=== PATIENT | male | born 1965 | race Caucasian/White ===

== ENCOUNTER 2017-07-15 16:13 | Inpatient (IN) | payer SELFPAY ==
[~2017-07-15] VITALS: Ht 177.8 cm; Wt 65.0 kg
[2017-07-15 16:15] VITALS: BP 139/83; PULSE 103; RESP 14; TEMP 98.8; O2SAT 95
[2017-07-15 17:46] LABS: AUTOMATED NEUTROPHIL # 7.6 TH/MM3 (1.8-7.7); BASOPHIL % 0.3 % (0.0-2.0); EOSINOPHIL # 0.1 TH/MM3 (0-0.4); EOSINOPHIL % 0.9 % (0.0-4.0); HEMOGLOBIN 14.2 GM/DL (13.0-17.0); LYMPHOCYTE # 2.3 TH/MM3 (1.0-4.8); MEAN CORPUSCULAR HEMOGLOBIN 33.2 PG (27.0-34.0); MEAN CORPUSCULAR HGB CONC 34.6 % (32.0-36.0); MEAN PLATELET VOLUME 7.6 FL (7.0-11.0); MONO % 12.5 % (0.0-8.0); MONOCYTE # 1.4 TH/MM3 (0-0.9); NEUT % 66.3 % (16.0-70.0); PLATELET COUNT 181 TH/MM3 (150-450); RED BLOOD COUNT 4.27 MIL/MM3 (4.50-5.90); RED CELL DISTRIBUTION WIDTH 14.1 % (11.6-17.2); WHITE BLOOD COUNT 11.4 TH/MM3 (4.0-11.0)
[2017-07-15 18:00] LABS: BICARBONATE 22.1 MEQ/L (21.0-32.0); CALCIUM 8.5 MG/DL (8.5-10.1); CREATININE 0.61 MG/DL (0.60-1.30)
[2017-07-15] MEDS ORDERED: MORPHINE SULFATE 4 MG/ML INJ IV PUSH ONE (18:00)
[2017-07-15] MEDS ORDERED: AMPICILLIN-SULBACTAM INJ 3 GM in SODIUM CHLORIDE 0.9% INJ 100 ML IV ONE (18:00)
[2017-07-15] MEDS ORDERED: NICOTINE 14 MG/24 HR PATCH T-DERMAL ONE (18:00)
[2017-07-15] MEDS ORDERED: IBUP1TAB7 PO (18:06)
--- NOTE | 2017-07-15 18:26 | RADRPT ---
EXAM DATE/TIME: 07/15/2017 18:09 [place] COMPARISON: No previous studies available for comparison. INDICATIONS : Right hand pain and swelling, cat bite. MEDICAL HISTORY : None. SURGICAL HISTORY : None. ENCOUNTER: Initial ACUITY: 4 - 6 days PAIN SCORE: 10/10 LOCATION: Right hand, 3rd digit. FINDINGS: Soft tissue swelling overlying the dorsum of the distal hand and middle digit. Osseous structures felicia ear intact without evidence for bony erosion or fracture. Joint spaces are maintained. CONCLUSION: 1. Soft tissue swelling overlying the dorsum of the distal right hand and middle digit. 2. No radiopaque foreign bodies or fracture. Jak Valentin MD on July 15, 2017 at 18:24 Board Certified Radiologist. This report was verified electronically.
[2017-07-15] MEDS ORDERED: RABIES IMMUNE GLOBULIN INJ 1,500 UNITS/10 ML VIAL IM ONE (18:30)
[2017-07-15] MEDS ORDERED: RABIES VACCINE HUMAN DIPL CELL 2.5 UNITS/ML SYRINGE IM ONE (18:30)
[2017-07-15] MEDS ORDERED: NALOXONE HCL 0.4 MG/ML AMP IV PUSH PRN (18:45)
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
[2017-07-15 20:00] VITALS: BP 126/89; PULSE 97; RESP 18; TEMP 97; O2SAT 97
[2017-07-15] MEDS ORDERED: LORazepam 2 MG/ML VIAL IV PUSH PRN ×4 (21:00)
[2017-07-15] MEDS ORDERED: LORazepam 1 MG TAB PO PRN (21:00)
[2017-07-15] MEDS ORDERED: LORazepam 2 MG TAB PO PRN (21:00)
[2017-07-15] MEDS ORDERED: FLUMAZENIL 0.5 MG/5 ML VIAL IV PUSH PRN (21:00)
--- NOTE | 2017-07-15 21:00 | HHI.HP ---
[facility] Admission Diagnosis right middle finger infected cat bite, tendosynovitis? Diagnoses: Travel History International Travel<30 Days: No Contact w/Intl Traveler <30 Da: No Traveled to Known Affected Are: No History of Present Illness 52-year-old male with past medical history of alcohol and tobacco abuse (has not seen a PCP in 40 years) presents to the emergency department for evaluation of a cat bite. The patient reports that 4 days ago he was petting a stray cat that he had recently adopted when the cat bit the third digit of his right hand and scratched his face. 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 The patient' s finger began to swell and ulcerate and he is now having difficulty with range of motion. He reports significant pain to the finger. The scratches on his face are healing without signs of erythema or induration. The patient denies any fever/chills. No chest pain or shortness of breath. No nausea/vomiting/ diarrhea. Review of Systems Except as stated in HPI: all other systems reviewed are Neg Past Family Social History Past Medical History None that the patient is aware of Past Surgical History None Reported Medications Reported Meds & Active Scripts Active Reported Ibuprofen 800 Mg Tab 800 Mg PO Q6HR PRN Allergies: Coded Allergies: No Known Allergies (Verified Allergy, Mild, 10/29/07) Family History Father with diabetes mellitus Social History Smokes approximately one pack per day. Drinks 816 ounce beers daily. Denies marijuana or illicit drugs. Physical Exam Vital Signs Vital Signs Date Time Temp Pulse Resp B/P (MAP) Pulse Ox O2 Delivery O2 Flow Rate FiO2 07/15/17 20:21 07/15/17 19:46 18 07/15/17 16:15 98.8 103 14 139/83 (101) 95 Physical Exam GENERAL: male sitting up in bed SKIN: No rashes, ecchymoses or lesions. Cool and dry. 2 small puncture wounds on the left latter-day and left cheek, healing well without surrounding erythema or edema. HEAD: Atraumatic. Normocephalic. No temporal or scalp tenderness. EYES: Pupils equal round and reactive. Extraocular motions intact. No scleral icterus. No injection or drainage. ENT: Nose without bleeding, purulent drainage or septal hematoma. Throat without erythema, tonsillar hypertrophy or exudate. Uvula midline. Airway patent. NECK: Trachea midline. No JVD or lymphadenopathy. Supple, nontender, no meningeal signs. CARDIOVASCULAR: Regular rate and rhythm without murmurs, gallops, or rubs. RESPIRATORY: Clear to auscultation. Breath sounds equal bilaterally. No wheezes , rales, or rhonchi. GASTROINTESTINAL: Abdomen soft, non-tender, nondistended. No hepato-splenomegaly , or palpable masses. No guarding. MUSCULOSKELETAL: Extremities without clubbing, cyanosis, or edema. Third digit of right hand erythematous and swollen. Ulceration over PIP joint. Capillary refill less than 2 seconds. Unable to flex the DIP joint. Sensation intact NEUROLOGICAL: Awake and alert. Cranial nerves II through XII intact. Motor and sensory grossly within normal limits. Normal speech. Laboratory Laboratory Tests Test 07/15/17 17:00 White Blood Count 11.4 Red Blood Count 4.27 Hemoglobin 14.2 Hematocrit 41.0 Mean Corpuscular Volume 96.0 Mean Corpuscular Hemoglobin 33.2 Mean Corpuscular Hemoglobin Concent 34.6 Red Cell Distribution Width 14.1 Platelet Count 181 Mean Platelet Volume 7.6 Neutrophils (%) (Auto) 66.3 Lymphocytes (%) (Auto) 20.0 Monocytes (%) (Auto) 12.5 Eosinophils (%) (Auto) 0.9 Basophils (%) (Auto) 0.3 Neutrophils # (Auto) 7.6 Lymphocytes # (Auto) 2.3 Monocytes # (Auto) 1.4 Eosinophils # (Auto) 0.1 Basophils # (Auto) 0.0 CBC Comment DIFF FINAL Differential Comment Blood Urea Nitrogen 4 Creatinine 0.61 Random Glucose 79 Calcium Level 8.5 Sodium Level 134 Potassium Level 3.8 Chloride Level 103 Carbon Dioxide Level 22.1 Anion Gap 9 Estimat Glomerular Filtration Rate 140 Date/Time Source Procedure Growth Status 07/15/17 18:30 Blood Peripheral Aerobic Blood Culture Pending Received 07/15/17 18:30 Blood Peripheral Anaerobic Blood Culture Pending Received Result Diagram: 07/15/17 1700 07/15/17 1700 Caprini VTE Risk Assessment Caprini VTE Risk Assessment: No/Low Risk (score <= 1) Caprini Risk Assessment Model Point Value = 1 Point Value = 2 Point Value = 3 Point Value = 5 Age 41-60 Minor surgery BMI > 25 kg/m2 Swollen legs Varicose veins or History of unexplained or recurrent spontaneous Oral contraceptives or hormone replacement Sepsis (< 1 month) Serious lung disease, including pneumonia (< 1 month) Abnormal pulmonary function Acute myocardial infarction Congestive heart failure (< 1 month) History of inflammatory bowel disease Medical patient at bed rest Age 61-74 Arthroscopic surgery Major open surgery (> 45 min) Laparoscopic surgery (> 45 min) Malignancy Confined to bed (> 72 hours) Immobilizing plaster cast Central venous access Age >= 75 History of VTE Family history of VTE Factor V Leiden Prothrombin [id number] Lupus anticoagulant Anticardiolipin antibodies Elevated serum homocysteine Heparin-induced thrombocytopenia Other congenital or acquired thrombophilia Stroke (< 1 month) Elective arthroplasty Hip, pelvis, or leg fracture Acute spinal cord injury (< 1 month) Prophylaxis Regimen Total Risk Factor Score Risk Level Prophylaxis Regimen 0-1 Low Early ambulation 2 Moderate Order ONE of the following: *Sequential Compression Device (SCD) *Heparin 5000 units SQ BID 3-4 Higher Order ONE of the following medications: *Heparin 5000 units SQ TID *Enoxaparin/Lovenox 40 mg SQ daily (WT < 150 kg, CrCl > 30 mL/min) *Enoxaparin/Lovenox 30 mg SQ daily (WT < 150 kg, CrCl > 10-29 mL/min) *Enoxaparin/Lovenox 30 mg SQ BID (WT < 150 kg, CrCl > 30 mL/min) AND/OR *Sequential Compression Device (SCD) 5 or more Highest Order ONE of the following medications: *Heparin 5000 units SQ TID (Preferred with Epidurals) *Enoxaparin/Lovenox 40 mg SQ daily (WT < 150 kg, CrCl > 30 mL/min) *Enoxaparin/Lovenox 30 mg SQ daily (WT < 150 kg, CrCl > 10-29 mL/min) *Enoxaparin/Lovenox 30 mg SQ BID (WT < 150 kg, CrCl > 30 mL/min) AND *Sequential Compression Device (SCD) Assessment and Plan Assessment and Plan Assessment/plan: 1. Cat bite/hand cellulitis Patient bitten by a stray cat with unknown history Per Department of Health, rabies cannot be excluded Rabies immunoglobulin given in the emergency department today Initial rabies vaccine given in the emergency department today Per health department, patient will need vaccinations on day 3, 7 and 14he will be able to receive these vaccinations at the health department except for day 3 which is a Wednesday. Patient is being taken to the OR for washout of third digit right hand, hand surgery consulted, appreciate assistance Unasyn 2. Alcohol abuse Folate/Ben/multivitamins [facility] protocol 3. Noncompliance The patient does not wish to be admitted to the hospital and has tried on multiple occasions to leave AGAINST MEDICAL ADVICE. Risks and benefits including not completing the rabies vaccination series, not completing IV antibiotics and not having his hand injury addressed in the operating room may result in serious infection, hand amputation and ultimately were discussed with the patient. The patient expresses understanding and agrees to stay at this time. It is unclear how long the patient will remain in the hospital. FEN NPO Electrolytes: monitor and replete prn Ambulation Physician Certification 2 Midnight Certification Type: Admission for Inpatient Services Order for Inpatient Services The services are ordered in accordance with Medicare regulations or non- Medicare payer requirements, as applicable. In the case of services not specified as inpatient-only, they are appropriately provided as inpatient services in accordance with the 2-midnight benchmark. Estimated LOS (days): 2 2 days is the estimated time the patient will need to remain in the hospital, assuming treatment plan goals are met and no additional complications. Post-Hospital Plan: Not yet determined Rachana Dunham MD Jul 15, 2017 21:00
[2017-07-15] MEDS: SODIUM CHLORIDE 0.9% FLUSH 10 ML FLUSH IV FLUSH SCH (22:43)
[2017-07-15] MEDS ORDERED: LIDOCAINE HCL 2% 50 ML VIAL ONE (23:29)
[2017-07-15] MEDS ORDERED: MUPIROCIN 2% OINT 22 GM TUBE ONE (23:30)
[2017-07-15] MEDS ORDERED: NEOMYCIN/POLYMYXIN 1 ML G.U. IRRIGANT ONE ×2 (23:35→23:36)
[2017-07-15] MEDS ORDERED: BUPIVACAINE HCL PF 0.5% 30 ML VIAL ONE (23:43)
[2017-07-15] MEDS ORDERED: MIDAZOLAM HCL 2 MG/2 ML VIAL ONE (23:49)
[2017-07-16] VITALS (10 sets, daily range): BP systolic 76–139; BP diastolic 66–88; PULSE 65–92; RESP 17–20; TEMP 97.5–99.1; O2SAT 94–99
--- NOTE | 2017-07-16 01:22 | PD.OP ---
Operative Report Preoperative Diagnosis: (1) Abscess of right middle finger Postoperative Diagnosis: (1) flexor tenosynovitis right middle finger (2) Abscess of right middle finger Procedure: incision and drainage abscess right middle finger dorsum incision and drainage flexor tendon sheath right middle finger Anesthesia: general Surgeon: Cade Craven Counselor Manager(s): gaurav Operation and Findings: abscess over the dorsal aspect of the right middle finger subcutaneous and underneath extensor mechanism extensive inflammatory and necrotic tissue infection of the flexor tendon sheath right middle finger Cade Craven MD Jul 16, 2017 01:22
[2017-07-16] MEDS ORDERED: *morphine SULFATE 4 MG/ML PERIprocedure ONLY ONE (01:44)
[2017-07-16] MEDS ORDERED: DO NOT ADM ANY ANTICOAGULANT DRUGS PRN (01:45)
[2017-07-16] MEDS: AMPICILLIN-SULBACTAM INJ 3 GM in SODIUM CHLORIDE 0.9% INJ 100 ML IV SCH ×4 (02:17→18:16)
[2017-07-16] MEDS: MORPHINE SULFATE 2 MG/ML INJ IV PUSH PRN ×2 (03:01→08:17)
[2017-07-16] MEDS: SODIUM CHLORIDE 0.9% FLUSH 10 ML FLUSH IV FLUSH PRN (03:01)
[2017-07-16 07:59] LABS: AUTOMATED NEUTROPHIL # 4.8 TH/MM3 (1.8-7.7); BASOPHIL % 0.2 % (0.0-2.0); EOSINOPHIL % 0.5 % (0.0-4.0); HEMATOCRIT 38.5 % (39.0-51.0); HEMOGLOBIN 13.4 GM/DL (13.0-17.0); LYMPH % 12.8 % (9.0-44.0); LYMPHOCYTE # 0.9 TH/MM3 (1.0-4.8); MEAN CELL VOLUME 95.4 FL (80.0-100.0); MEAN CORPUSCULAR HEMOGLOBIN 33.2 PG (27.0-34.0); MEAN CORPUSCULAR HGB CONC 34.8 % (32.0-36.0); MEAN PLATELET VOLUME 7.3 FL (7.0-11.0); MONO % 15.5 % (0.0-8.0); PLATELET COUNT 166 TH/MM3 (150-450); RED BLOOD COUNT 4.04 MIL/MM3 (4.50-5.90); RED CELL DISTRIBUTION WIDTH 13.8 % (11.6-17.2); WHITE BLOOD COUNT 6.8 TH/MM3 (4.0-11.0)
[2017-07-16] MEDS: MULTIVITAMINS/MINERALS THERAPEUTIC TAB PO SCH (08:18)
[2017-07-16] MEDS: FOLIC ACID 1 MG TAB PO SCH (08:18)
[2017-07-16] MEDS: THIAMINE HCL 100 MG TAB PO SCH (08:18)
[2017-07-16] MEDS: SODIUM CHLORIDE 0.9% FLUSH 10 ML FLUSH IV FLUSH SCH ×2 (08:19→21:00)
[2017-07-16 08:24] LABS: BICARBONATE 23.7 MEQ/L (21.0-32.0); CREATININE 0.59 MG/DL (0.60-1.30)
[2017-07-16] MEDS ORDERED: ONDANSETRON HCL 4 MG/2 ML VIAL ONE (11:26)
[2017-07-16] MEDS ORDERED: PROPOFOL 200 MG/20 ML AMP IV ONE (12:00)
[2017-07-16] MEDS ORDERED: ceFAZolin INJ 1,000 MG VIAL IV ONE (12:00)
[2017-07-16] MEDS ORDERED: NS + KCL 20 MEQ INJ 1,000 ML IV PRN (12:00)
[2017-07-16] MEDS ORDERED: LIDOCAINE HCL 1% PF 5 ML SYRINGE OTHER ONE (12:00)
[2017-07-16] MEDS ORDERED: PHENYLEPH/NS 1000 MCG/10 ML SYR IV ONE (12:00)
--- NOTE | 2017-07-16 12:31 | MB ---
cc: DAVE ABBOTT MD DATE OF CONSULTATION 07/16/2017 REASON FOR CONSULTATION Right middle finger infection. HISTORY OF PRESENT ILLNESS The patient is a 52-year-old male who presented with complaints of pain and swelling over the right middle finger for the past 4-5 days. The patient states he was bitten by a cat over the dorsal aspect of the right middle finger. The patient did not seek immediate medical attention. He is presenting today with worsening pain and swelling over the right middle finger and right palm region. The patient also complains of pain along the volar aspect of the right middle finger. He denies any tingling or numbness. He complains of mild drainage. Denies any fever or chills. The patient has a history of alcohol and tobacco abuse. PAST MEDICAL/SURGICAL HISTORY None significant. PHYSICAL EXAMINATION GENERAL: The patient is alert and oriented x3. RIGHT HAND: Examination of the right middle finger reveals diffuse swelling of the right middle finger and the dorsal aspect of the hand. There is also swelling along the palmar aspect of the hand corresponding to the middle finger which extends along the volar aspect of the proximal phalanx region. Exquisite tenderness is noted along the flexor aspect of the right middle finger. Tenderness is also noted over the dorsal aspect of the finger. The fingers is in a flexed position. Range of motion is limited and painful. Tenderness noted over the MP joint region of the middle finger. He has intact sensation distally. He has intact distal circulation. LABORATORY His lab work was reviewed. He has a white count of 11.4. IMAGING X-rays of the right hand show evidence of soft tissue swelling over the right middle finger. No evidence of radiopaque foreign body noted. ASSESSMENT A 52-year-old male with abscess over the dorsal aspect of the right middle finger with flexor tenosynovitis of the right middle finger. PLAN Will keep the patient n.p.o., take him emergently for incision and drainage of right middle finger abscess and drainage of flexor tendon sheath. The patient has been explained the risks and benefits of the procedure and he has been consented for the same. Dave Abbott MD SE/BT /1:28 AM 12:15 PM
--- NOTE | 2017-07-16 13:50 | HHI.PR ---
Subjective Remarks F/u infected cat bite. Complaining of finger pain. N/V this am per vomits when under stress. No abd pain dw RN Objective Vitals Vital Signs Date Time Temp Pulse Resp B/P (MAP) Pulse Ox O2 Delivery O2 Flow Rate FiO2 07/16/17 12:00 97.8 92 20 76/ 94 07/16/17 10:23 95 07/16/17 08:38 68 07/16/17 07:47 98.6 89 20 139/88 (105) 95 07/16/17 04:00 97.5 73 18 109/66 (80) 96 07/16/17 01:45 93 18 114/79 (91) 93 Nasal Cannula 2 07/16/17 01:30 99 15 109/77 (88) 95 Nasal Cannula 2 07/16/17 01:25 98.1 95 15 110/66 (81) 93 Nasal Cannula 2 07/15/17 20:21 07/15/17 20:00 97.0 97 18 126/89 (101) 97 07/15/17 19:46 18 07/15/17 16:15 98.8 103 14 139/83 (101) 95 I/O 07/15/17 07/15/17 07/15/17 07/16/17 07/16/17 07/16/17 07:00 15:00 23:00 07:00 15:00 23:00 Intake Total 200 ml 100 ml Output Total 20 ml Balance 180 ml 100 ml Intake IV Total 100 ml Other 200 ml Output Estimated Blood Loss 20 ml # Voids 3 Result Diagram: 07/16/17 0658 07/16/17 0658 Imaging Last Impressions Hand X-Ray 07/15/17 2462 Signed Impressions: Service Date/Time: June 18:09 - CONCLUSION: 1. Soft tissue swelling overlying the dorsum of the distal right hand and middle digit. 2. No radiopaque foreign bodies or fracture. Jak Valentin MD Objective Remarks GENERAL: male sitting up in bed SKIN: No rashes, ecchymoses or lesions. Cool and dry. Dry dressing right hand CARDIOVASCULAR: Regular rate and rhythm without murmurs, gallops, or rubs. RESPIRATORY: Clear to auscultation. Breath sounds equal bilaterally. No wheezes , rales, or rhonchi. GASTROINTESTINAL: Abdomen soft, non-tender, nondistended. No guarding. MUSCULOSKELETAL: Extremities without clubbing, cyanosis, or edema. NEUROLOGICAL: Awake and alert. Cranial nerves II through XII intact. Motor and sensory grossly within normal limits. Normal speech. Procedures incision and drainage abscess right middle finger dorsum incision and drainage flexor tendon sheath right middle finger A/P Problem List: (1) Abscess of right middle finger ICD Code: L02.511 - Cutaneous abscess of right hand (2) flexor tenosynovitis right middle finger Assessment and Plan 1. Cat bite/finger abscess Patient bitten by a stray cat with unknown history Per Department of Health, rabies cannot be excluded Rabies immunoglobulin given in the emergency department 07/15 Initial rabies vaccine given in the emergency department 07/15 Per health department, patient will need vaccinations on day 3, 7 and 14 he will be able to receive these vaccinations at the health department except for day 3 which is a Wednesday when he can get it in ED. Patient doing well status post hand surgery. Continue pain management with Lortab and IV morphine Continue Unasyn follow-up cultures negative to date 2. Alcohol abuse. Counselled Folate/Ben/multivitamins [facility] protocol 3. Noncompliance Low risk for DVT . Early ambulation Discharge Planning Dc per hand surgery Iam Toribio MD Jul 16, 2017 13:50
[2017-07-16] MEDS ORDERED: HYDR-3516 PO (14:00)
[2017-07-16] MEDS ORDERED: THIA100 PO (14:00)
[2017-07-16] MEDS ORDERED: AUGM875T3 PO (14:02)
--- NOTE | 2017-07-16 14:03 | HHI.DCPOC ---
Discharge Care Plan Diagnosis: (1) Cat bite of finger (2) Abscess of right middle finger (3) flexor tenosynovitis right middle finger Your Health Problems Are: Difficulty with ADL Exercise Tolerance Goals to Promote Your Health * To prevent worsening of your condition and complications * To maintain your health at the optimal level Directions to Meet Your Goals Take your medications as prescribed Follow your dietary instruction Follow activity as directed Keep your appointments as scheduled Take your immunizations and boosters as scheduled If your symptoms worsen call your PCP, if no PCP go to Urgent Care Center or Emergency Room Smoking is Dangerous to Your Health. Avoid second hand smoke Call the 24-hour hour crisis hotline for domestic abuse at Iam Toribio MD Jul 16, 2017 14:03
[2017-07-16] MEDS: ACETAMINOPHEN/HYDROcodone 325 MG/5 MG TAB PO PRN ×2 (14:49→20:00)
--- NOTE | 2017-07-16 16:17 | HHI.PR ---
Subjective Remarks complains of pain denies any numbness no fever Objective Vital Signs Date Time Temp Pulse Resp B/P (MAP) Pulse Ox O2 Delivery O2 Flow Rate FiO2 07/16/17 15:42 97.7 77 20 133/77 (95) 99 07/16/17 12:30 74 07/16/17 12:00 97.8 92 20 76/ 94 07/16/17 10:23 95 07/16/17 08:38 68 07/16/17 07:47 98.6 89 20 139/88 (105) 95 07/16/17 04:00 97.5 73 18 109/66 (80) 96 07/16/17 01:45 93 18 114/79 (91) 93 Nasal Cannula 2 07/16/17 01:30 99 15 109/77 (88) 95 Nasal Cannula 2 07/16/17 01:25 98.1 95 15 110/66 (81) 93 Nasal Cannula 2 07/15/17 20:21 07/15/17 20:00 97.0 97 18 126/89 (101) 97 07/15/17 19:46 18 07/15/17 16:15 98.8 103 14 139/83 (101) 95 I/O 07/15/17 07/15/17 07/15/17 07/16/17 07/16/17 07/16/17 07:00 15:00 23:00 07:00 15:00 23:00 Intake Total 200 ml 100 ml 960 ml Output Total 20 ml Balance 180 ml 100 ml 960 ml Intake Oral 960 ml IV Total 100 ml Other 200 ml Output Estimated Blood Loss 20 ml # Voids 3 3 examination of right hand: swelling and erythema noted over the dorsal aspect of the middle finger extending upto middle phalanx region range of motion of the middle finger is painful and limited packing in place over the palm and dorsal aspect of the finger intact sensation intact circulation cultures negative to date white count: normalized Result Diagram: 07/16/17 0658 07/16/17 0658 Assessment and Plan Assessment and Plan 52 year old male s/p incision and drainage abscess, drainage flexor tendon sheath right middle finger POD 1 Plan: packing pulled out partially dry dressing applied continue with IV antibiotics strict limb elevation and range of motion exercises hand surgery will follow Cade Craven MD Jul 16, 2017 16:17
[2017-07-17] VITALS (7 sets, daily range): BP systolic 114–148; BP diastolic 63–93; PULSE 60–78; RESP 17–20; TEMP 97.6–98.5; O2SAT 93–97
[2017-07-17] MEDS: AMPICILLIN-SULBACTAM INJ 3 GM in SODIUM CHLORIDE 0.9% INJ 100 ML IV SCH ×4 (02:08→17:43)
[2017-07-17] MEDS: SODIUM CHLORIDE 0.9% FLUSH 10 ML FLUSH IV FLUSH PRN (02:08)
[2017-07-17] MEDS: ACETAMINOPHEN/HYDROcodone 325 MG/5 MG TAB PO PRN ×5 (02:23→20:58)
[2017-07-17] MEDS: MULTIVITAMINS/MINERALS THERAPEUTIC TAB PO SCH (09:52)
[2017-07-17] MEDS: THIAMINE HCL 100 MG TAB PO SCH (09:52)
[2017-07-17] MEDS: FOLIC ACID 1 MG TAB PO SCH (09:52)
[2017-07-17] MEDS: SODIUM CHLORIDE 0.9% FLUSH 10 ML FLUSH IV FLUSH SCH ×2 (09:53→20:58)
[2017-07-17] MEDS ORDERED: RESP: ALBUTEROL 2.5 MG/3 ML NEB (PRN) NEB (10:30)
[2017-07-17 11:47] LABS: BICARBONATE 29.8 MEQ/L (21.0-32.0); CALCIUM 8.8 MG/DL (8.5-10.1); CREATININE 0.55 MG/DL (0.60-1.30); MAGNESIUM 2.1 MG/DL (1.5-2.5)
[2017-07-17] MEDS: RESP: ALBUTEROL 2.5 MG/IPRATROPIUM 0.5 MG NEB (SCH) NEB ×3 (12:00→19:46)
--- NOTE | 2017-07-17 14:08 | HHI.PR ---
Subjective Remarks Follow-up infected cat bite. Patient has no new complaints. Agrees to be started on nicotinic patch longtime smoker. Resolved nausea and vomiting from morphine sulfate. Discussed with nursing Objective Vitals Vital Signs Date Time Temp Pulse Resp B/P (MAP) Pulse Ox O2 Delivery O2 Flow Rate FiO2 07/17/17 11:40 98.4 62 20 127/73 (91) 96 07/17/17 08:26 97.9 69 20 130/70 (90) 94 07/17/17 04:05 97.6 60 17 132/73 (92) 97 07/17/17 00:03 98.5 61 17 114/63 (80) 97 07/16/17 20:37 99.1 65 17 126/87 (100) 97 07/16/17 17:18 99 21 07/16/17 15:59 91 07/16/17 15:42 97.7 77 20 133/77 (95) 99 I/O 07/16/17 07/16/17 07/16/17 07/17/17 07/17/17 07/17/17 07:00 15:00 23:00 07:00 15:00 23:00 Intake Total 200 ml 100 ml 960 ml 240 ml Output Total 20 ml Balance 180 ml 100 ml 960 ml 240 ml Intake Oral 960 ml 240 ml IV Total 100 ml Other 200 ml Output Estimated Blood Loss 20 ml # Voids 3 3 4 Result Diagram: 07/16/17 0658 07/17/17 1020 Objective Remarks GENERAL: male sitting up in bed SKIN: No rashes, ecchymoses or lesions. Cool and dry. Dry dressing right hand CARDIOVASCULAR: Regular rate and rhythm without murmurs, gallops, or rubs. RESPIRATORY: Breath sounds equal bilaterally. Scattered rhonchi GASTROINTESTINAL: Abdomen soft, non-tender, nondistended. No guarding. MUSCULOSKELETAL: Extremities without clubbing, cyanosis, or edema. NEUROLOGICAL: Awake and alert. Cranial nerves II through XII intact. Motor and sensory grossly within normal limits. Normal speech. Procedures incision and drainage abscess right middle finger dorsum incision and drainage flexor tendon sheath right middle finger A/P Problem List: (1) Abscess of right middle finger ICD Code: L02.511 - Cutaneous abscess of right hand Status: Acute (2) flexor tenosynovitis right middle finger Status: Acute Assessment and Plan 1. Cat bite/finger abscess status post surgery. Culture with Pasteurella multocida continue Unasyn. Continue pain management with Lortab and IV morphine and wound care by hand surgery. Patient bitten by a stray cat with unknown history and last received rabies immunoglobulin 07/15 and vaccine 07/15. Per health department, patient will need vaccinations on day 3, 7 and 14 he will be able to receive these vaccinations at the health department 2. Possible COPD. Tobacco cessation. Albuterol as needed. Obtain chest x- ray 3. Alcohol abuse. Counselled. [place] protocol 4. Noncompliance. Counselled Low risk for DVT . Early ambulation Discharge Planning Dc per hand surgery Iam Toribio MD Jul 17, 2017 14:08
--- NOTE | 2017-07-17 14:56 | RADRPT ---
EXAM DATE/TIME: 07/17/2017 14:33 [place] COMPARISON: No previous studies available for comparison. INDICATIONS : Bit by feral cat. Pain and infection. MEDICAL HISTORY : None. SURGICAL HISTORY : None. ENCOUNTER: Subsequent ACUITY: 3 days PAIN SCORE: 9/10 LOCATION: Bilateral chest FINDINGS: A single view of the chest demonstrates the lungs to be symmetrically aerated without evidence of mas s, infiltrate or effusion. The cardiomediastinal contours are unremarkable. Osseous structures are intact. CONCLUSION: Normal examination for a patient of this age. Alexx Deluna MD on July 17, 2017 at 14:54 Board Certified Radiologist. This report was verified electronically.
--- NOTE | 2017-07-17 16:03 | PD.ORT.PN ---
Subjective Post Op Day #: 2 Subjective Remarks pain much improved and motion much improved Range of Motion nearly full extension and flexion of the fingers right hand Objective Vitals Vital Signs Date Time Temp Pulse Resp B/P (MAP) Pulse Ox O2 Delivery O2 Flow Rate FiO2 07/17/17 11:40 98.4 62 20 127/73 (91) 96 07/17/17 08:26 97.9 69 20 130/70 (90) 94 07/17/17 04:05 97.6 60 17 132/73 (92) 97 07/17/17 00:03 98.5 61 17 114/63 (80) 97 07/16/17 20:37 99.1 65 17 126/87 (100) 97 07/16/17 17:18 99 21 07/16/17 15:59 91 I/O 07/16/17 07/16/17 07/16/17 07/17/17 07/17/17 07/17/17 07:00 15:00 23:00 07:00 15:00 23:00 Intake Total 200 ml 100 ml 960 ml 240 ml Output Total 20 ml Balance 180 ml 100 ml 960 ml 240 ml Intake Oral 960 ml 240 ml IV Total 100 ml Other 200 ml Output Estimated Blood Loss 20 ml # Voids 3 3 4 Result Diagram: 07/16/17 0658 07/17/17 1020 Other Results culture growing pasturella multocida Imaging Last 24 hours Impressions Chest X-Ray 07/17/17 0000 Signed Impressions: Service Date/Time: Monday, July 17, 2017 14:33 - CONCLUSION: Normal examination for a patient of this age. Alexx Deluna MD Objective Remarks wounds clean with pus on the packings right middle finger still with moderate edema right middle finger dorsum with minimal erythema and skin flap dorsal and radial is necrotic at corner of open wound Assessment & Plan Ortho Post Op Day #: 2 Problem List: (1) flexor tenosynovitis right middle finger Status: Acute Plan: on Unasyn--continue IV antibiotics packing removed about 1cm each wound, and the proximal right palmar wound packing was minimal, so this was completely removed. Wounds redressed with sterile 4x4s and 3" Heidi and patient encouraged to continue to work on AROM to help edema and drainage. Will discuss with Dr. Eathiraju about appearance of wound dorsally and he will recheck on 07/19 (2) Abscess of right middle finger ICD Codes: L02.511 - Cutaneous abscess of right hand Status: Acute (3) Cellulitis ICD Codes: L03.90 - Cellulitis, unspecified Status: Acute Qualifiers: Qualified Codes: L03.113 - Cellulitis of right upper limb (4) Cat bite of finger ICD Codes: S61.259A - Open bite of unspecified finger without damage to nail, initial encounter; W55.01XA - Bitten by cat, initial encounter Status: Acute Qualifiers: Qualified Codes: S61.259A - Open bite of unspecified finger without damage to nail, initial encounter; W55.01XA - Bitten by cat, initial encounter Verito Spears MD Jul 17, 2017 16:02
[2017-07-18] VITALS (7 sets, daily range): BP systolic 115–133; BP diastolic 67–84; PULSE 58–74; RESP 17–18; TEMP 98.1–98.6; O2SAT 93–97
[2017-07-18] MEDS: AMPICILLIN-SULBACTAM INJ 3 GM in SODIUM CHLORIDE 0.9% INJ 100 ML IV SCH ×5 (05:44→17:30)
[2017-07-18] MEDS: ACETAMINOPHEN/HYDROcodone 325 MG/5 MG TAB PO PRN ×4 (05:45→22:08)
[2017-07-18] MEDS: RESP: ALBUTEROL 2.5 MG/IPRATROPIUM 0.5 MG NEB (SCH) NEB ×4 (07:36→20:00)
[2017-07-18] MEDS ORDERED: RABIES VACCINE HUMAN DIPL CELL 2.5 UNITS/ML SYRINGE IM ONE (08:00)
[2017-07-18] MEDS: NICOTINE 21 MG/24 HR PATCH T-DERMAL SCH (09:00)
[2017-07-18] MEDS: THIAMINE HCL 100 MG TAB PO SCH (09:16)
[2017-07-18] MEDS: MULTIVITAMINS/MINERALS THERAPEUTIC TAB PO SCH (09:16)
[2017-07-18] MEDS: SODIUM CHLORIDE 0.9% FLUSH 10 ML FLUSH IV FLUSH SCH ×2 (09:16→22:10)
[2017-07-18] MEDS: FOLIC ACID 1 MG TAB PO SCH (09:16)
--- NOTE | 2017-07-18 15:26 | HHI.PR ---
Subjective Remarks Follow-up cat bite infection. Improving hand pain. Patient has no complaint. Patient states he wants to go home he needs to get back to work discussed with nursing Objective Vitals Vital Signs Date Time Temp Pulse Resp B/P (MAP) Pulse Ox O2 Delivery O2 Flow Rate FiO2 07/18/17 12:00 98.1 74 18 128/84 (99) 95 07/18/17 10:57 07/18/17 08:00 98.6 61 17 130/71 (90) 97 07/18/17 07:36 93 07/18/17 04:00 98.2 58 18 115/67 (83) 95 07/18/17 00:00 98.2 61 18 130/68 (88) 95 07/17/17 21:32 94 07/17/17 20:00 98.2 78 18 148/70 (96) 93 07/17/17 16:41 98.1 64 20 131/93 (106) 94 I/O 07/17/17 07/17/17 07/17/17 07/18/17 07/18/17 07/18/17 07:00 15:00 23:00 07:00 15:00 23:00 Intake Total 240 ml 940 ml 200 ml 0 ml Balance 240 ml 940 ml 200 ml 0 ml Intake Oral 240 ml 940 ml IV Total 200 ml 0 ml # Voids 4 4 # Bowel Movements 2 2 Result Diagram: 07/16/17 0658 07/17/17 1020 Imaging Last Impressions Chest X-Ray 07/17/17 0000 Signed Impressions: Service Date/Time: Monday, July 17, 2017 14:33 - CONCLUSION: Normal examination for a patient of this age. Alexx Deluna MD Hand X-Ray 07/15/17 1759 Signed Impressions: Service Date/Time: June 18:09 - CONCLUSION: 1. Soft tissue swelling overlying the dorsum of the distal right hand and middle digit. 2. No radiopaque foreign bodies or fracture. Jak Valentin MD Objective Remarks GENERAL: male sitting up in bed SKIN: No rashes, ecchymoses or lesions. Cool and dry. Dry dressing right hand CARDIOVASCULAR: Regular rate and rhythm without murmurs, gallops, or rubs. RESPIRATORY: Breath sounds equal bilaterally. Scattered rhonchi GASTROINTESTINAL: Abdomen soft, non-tender, nondistended. No guarding. MUSCULOSKELETAL: Extremities without clubbing, cyanosis, or edema. Increasing range of motion right fingers NEUROLOGICAL: Awake and alert. Cranial nerves II through XII intact. Motor and sensory grossly within normal limits. Normal speech. Procedures incision and drainage abscess right middle finger dorsum incision and drainage flexor tendon sheath right middle finger A/P Problem List: (1) Abscess of right middle finger ICD Code: L02.511 - Cutaneous abscess of right hand Status: Acute (2) flexor tenosynovitis right middle finger Status: Acute Assessment and Plan 1. Cat bite/finger abscess status post surgery. Culture with Pasteurella multocida. Stable continue Unasyn. Continue pain management with Lortab and IV morphine and wound care by hand surgery. Patient bitten by a stray cat with unknown history and received rabies immunoglobulin 07/15 and vaccine 07/15. Per health department, patient will need vaccinations on day 3(given today), 7 and 14 he will be able to receive these vaccinations at the health department 2. Possible COPD. Tobacco cessation. Albuterol as needed. Chest x-ray without acute cardiopulmonary disease 3. Alcohol abuse. Counselled. [facility] protocol 4. Noncompliance. Counselled Low risk for DVT . Early ambulation Discharge Planning Dc per hand surgery possibly tomorrow Iam Toribio MD Jul 18, 2017 15:26
--- NOTE | 2017-07-18 17:49 | MP ---
cc: DAVE ABBOTT MD DATE OF SURGERY: 07/16/2017. PREOPERATIVE DIAGNOSIS: Abscess, right middle finger. POSTOPERATIVE DIAGNOSIS 1. Abscess, right middle finger. 2. Flexor tenosynovitis right middle finger. OPERATIVE PROCEDURE PERFORMED: 1. Incision and drainage of complicated abscess, right middle finger dorsum. 2. Incision and drainage of flexor tendon sheath, right middle finger. SURGEON: Dave Abbott M.D. ANESTHESIA: General. ESTIMATED BLOOD LOSS: Minimal. TOURNIQUET TIME: 45 minutes at 250 mmHg. SPECIMEN: Cultures were obtained and sent from dorsum of the right middle finger and from flexor tendon sheath. DISPOSITION: The patient tolerated the procedure well and was sent to the recovery room in stable condition. INDICATIONS FOR THE PROCEDURE: The patient is a 52-year-old right-hand dominant male who presented to the emergency department with complaints of pain and swelling involving the right middle finger following a cat bite about four to five days ago. The patient complains of worsening pain and swelling with drainage from the right middle finger region. On examination, he had swelling of the right middle finger both on the dorsal and volar aspects. He had necrotic skin and subcutaneous tissue on the dorsal aspect of the middle finger. He also had tenderness and swelling along the volar aspect of the proximal phalanx and the palm region. The patient had a flexion deformity of the middle finger. Range of motion of the middle finger was associated with pain and was limited. He had intact sensation distally. He had intact distal sensation and circulation. He had an elevated white count of 11.4 and neutrophil shift of 66%. X-rays showed evidence of soft tissue swelling. The patient was clinically diagnosed with abscess of the right middle finger and flexor tenosynovitis and was consented for incision and drainage of the right middle finger abscess. DESCRIPTION OF THE PROCEDURE IN DETAIL: The patient was brought to the operating room and under general anesthesia the right upper extremity was thoroughly prepped and draped. After limb elevation, the tourniquet was inflated to 250 mmHg. The patient had a strip of almost necrotic skin and subcutaneous tissue on the dorsal aspect of the finger. A mid axial incision was made over the dorsal aspect proximal phalanx of the middle finger. Soft tissue dissection was carried out. There was an abscess cavity over the dorsal aspect of the finger both superficial to the extensor mechanism and deep to the extensor mechanism. Material was obtained for culture and sensitivity. About 5-6 mL of purulent material was drained from the region. Extensive necrotic and inflammatory tissue was noted over the dorsal aspect of the extensor mechanism, which was debrided. The extensor mechanism was retracted dorsally and the proximal phalanx was exposed. There was evidence of inflammatory periosteum over the proximal phalanx which was debrided. Attention was then directed to the volar aspect. A zigzag incision was made from the palm, across the A1 samantha and across the base of the proximal phalanx. Skin flaps were elevated. Extensive inflammatory tissue of the subcutaneous tissue was noted. The A1 samantha was isolated and released in a proximal to distal direction. Minimal purulence was noted within the flexor tendon sheath and cultures were obtained from the same. Skin flaps were elevated exposing the A3 samantha region which was opened up and inflammatory tissue was noted on the surface of the flexor tendon sheath, which was debrided. Thorough wash was given using normal saline mixed with hydrogen peroxide and irrigant. About a liter of solution was used and the flexor tendon sheath was irrigated in a proximal to distal direction. The second webspace between the index and middle finger was then connected from the volar incision down to the dorsal aspect. Throughout the procedure, the neurovascular bundle was protected out of harm's way. Packing of the flexor tendon sheath and dorsum of the middle finger both in the subcutaneous and underneath the extensor mechanism was carried out using iodoform packing material. The tourniquet was deflated. Total tourniquet time was 45 minutes. Bleeding was controlled with the bipolar cautery. Skin flaps were then approximated loosely using 5-0 nylon in a horizontal mattress interrupted fashion. On the dorsal aspect, a single stitch was applied keeping the skin incision together and this was packed with quarter inch Iodoform packing material. He had good distal circulation at the end of the procedure. Bulky hand dressing was applied which was held in place by Sof-Rol and bias hand wrap. The patient was recovered and sent to the recovery room in stable condition. We will change the packing tomorrow. Will continue the IV antibiotics. Dave Abbott MD SE/MERCEDES /1:22 AM /5:36 PM
[2017-07-19] VITALS (7 sets, daily range): BP systolic 117–138; BP diastolic 70–98; PULSE 67–99; RESP 18; TEMP 98–98.9; O2SAT 96–97
[2017-07-19] MEDS: AMPICILLIN-SULBACTAM INJ 3 GM in SODIUM CHLORIDE 0.9% INJ 100 ML IV SCH ×4 (01:05→17:38)
[2017-07-19] MEDS: ACETAMINOPHEN/HYDROcodone 325 MG/5 MG TAB PO PRN ×5 (02:09→19:03)
[2017-07-19] MEDS: SODIUM CHLORIDE 0.9% FLUSH 10 ML FLUSH IV FLUSH PRN (02:09)
[2017-07-19] MEDS: RESP: ALBUTEROL 2.5 MG/IPRATROPIUM 0.5 MG NEB (SCH) NEB ×4 (08:00→19:10)
[2017-07-19] MEDS: THIAMINE HCL 100 MG TAB PO SCH (08:32)
[2017-07-19] MEDS: MULTIVITAMINS/MINERALS THERAPEUTIC TAB PO SCH (08:32)
[2017-07-19] MEDS: SODIUM CHLORIDE 0.9% FLUSH 10 ML FLUSH IV FLUSH SCH (08:33)
[2017-07-19] MEDS: FOLIC ACID 1 MG TAB PO SCH (08:33)
[2017-07-19] MEDS: NICOTINE 21 MG/24 HR PATCH T-DERMAL SCH (08:33)
[2017-07-19] MEDS: REMOVE OLD PATCH T-DERMAL SCH (08:35)
--- NOTE | 2017-07-19 13:18 | HHI.PR ---
Subjective Remarks Pt wondering if he will need another procedure. Pt states that he has been moving his fingers and elevating his hand. STill has pain but controlled. no nausea or vomiting Objective Vitals Vital Signs Date Time Temp Pulse Resp B/P (MAP) Pulse Ox O2 Delivery O2 Flow Rate FiO2 07/19/17 12:40 98.9 67 18 138/75 (96) 96 07/19/17 11:25 96 07/19/17 08:10 98.4 73 18 130/81 (97) 96 07/19/17 04:00 98.1 68 18 117/70 (86) 97 07/19/17 00:00 98.0 71 18 120/73 (89) 97 07/18/17 20:00 98.5 69 18 133/78 (96) 96 07/18/17 18:49 07/18/17 16:00 98.2 71 18 125/72 (89) 95 I/O 07/18/17 07/18/17 07/18/17 07/19/17 07/19/17 07/19/17 07:00 15:00 23:00 07:00 15:00 23:00 Intake Total 200 ml 0 ml 300 ml Balance 200 ml 0 ml 300 ml IV Total 200 ml 0 ml 300 ml Result Diagram: 07/16/17 0658 07/17/17 1020 Imaging Last Impressions Chest X-Ray 07/17/17 0000 Signed Impressions: Service Date/Time: Monday, July 17, 2017 14:33 - CONCLUSION: Normal examination for a patient of this age. Alexx Deluna MD Hand X-Ray 07/15/17 1759 Signed Impressions: Service Date/Time: June 18:09 - CONCLUSION: 1. Soft tissue swelling overlying the dorsum of the distal right hand and middle digit. 2. No radiopaque foreign bodies or fracture. Jak Valentin MD Objective Remarks GENERAL: male sitting up in bed SKIN: Dry dressing right hand CARDIOVASCULAR: Regular rate and rhythm without murmurs RESPIRATORY: Breath sounds equal bilaterally. clear on auscultation GASTROINTESTINAL: Abdomen soft, non-tender, nondistended. No guarding. MUSCULOSKELETAL: Increasing range of motion right fingers NEUROLOGICAL: Awake and alert. Normal speech. Procedures incision and drainage abscess right middle finger dorsum incision and drainage flexor tendon sheath right middle finger A/P Problem List: (1) Abscess of right middle finger ICD Code: L02.511 - Cutaneous abscess of right hand Status: Acute (2) flexor tenosynovitis right middle finger Status: Acute Assessment and Plan 1. Cat bite/finger abscess status post surgery. Culture with Pasteurella multocida. Stable continue Unasyn. Continue pain management with Lortab and IV morphine and wound care by hand surgery. Patient bitten by a stray cat with unknown history and received rabies immunoglobulin 07/15 and vaccine 07/15. Per health department, patient will need vaccinations on day 3(given here), 7 and 14 he will be able to receive these vaccinations at the health department 2. Possible COPD. Tobacco cessation. Albuterol as needed. Chest x-ray without acute cardiopulmonary disease 3. Alcohol abuse. Counselled. [facility] protocol 4. Noncompliance. Counselled Discharge Planning awaiting final recs from [facility] Padma Fraire MD Jul 19, 2017 13:18
--- NOTE | 2017-07-19 18:56 | HHI.PR ---
Subjective Remarks complains of mild pain denies any numbness no fever Objective Vital Signs Date Time Temp Pulse Resp B/P (MAP) Pulse Ox O2 Delivery O2 Flow Rate FiO2 07/19/17 16:00 98.6 99 18 136/98 (111) 96 07/19/17 12:40 98.9 67 18 138/75 (96) 96 07/19/17 11:25 96 07/19/17 08:10 98.4 73 18 130/81 (97) 96 07/19/17 04:00 98.1 68 18 117/70 (86) 97 07/19/17 00:00 98.0 71 18 120/73 (89) 97 07/18/17 20:00 98.5 69 18 133/78 (96) 96 I/O 07/18/17 07/18/17 07/18/17 07/19/17 07/19/17 07/19/17 07:00 15:00 23:00 07:00 15:00 23:00 Intake Total 200 ml 0 ml 300 ml 480 ml Balance 200 ml 0 ml 300 ml 480 ml Intake Oral 480 ml IV Total 200 ml 0 ml 300 ml # Voids 3 right hand: packing in place decreased swelling necrotic skin over the proximal phalanx region able to make a better fist cultures: tim Result Diagram: 07/16/17 0658 07/17/17 1020 Assessment and Plan Assessment and Plan 52 year old male s/p incision and drainage abscess, drainage flexor tendon sheath right middle finger POD 4 Plan: packing pulled out completely dry dressing applied continue with IV antibiotics strict limb elevation and range of motion exercises option for necrotic skin with daily dressing changes vs surgical excision hand surgery will follow tomorrow and decide about the excision of necrotic skin which will be done bedside plan for discharge in a day or two on po antibiotics Cade Craven MD Jul 19, 2017 18:56
[2017-07-20] VITALS: BP 109/76; PULSE 73; RESP 18; TEMP 98.3; O2SAT 95
[2017-07-20] MEDS: AMPICILLIN-SULBACTAM INJ 3 GM in SODIUM CHLORIDE 0.9% INJ 100 ML IV SCH ×4 (00:35→17:20)
[2017-07-20] MEDS: SODIUM CHLORIDE 0.9% FLUSH 10 ML FLUSH IV FLUSH SCH ×2 (00:36→08:45)
[2017-07-20] MEDS: ACETAMINOPHEN/HYDROcodone 325 MG/5 MG TAB PO PRN ×4 (00:44→21:12)
[2017-07-20 04:00] VITALS: BP 117/73; PULSE 70; RESP 20; TEMP 98.2; O2SAT 95
[2017-07-20] MEDS: RESP: ALBUTEROL 2.5 MG/IPRATROPIUM 0.5 MG NEB (SCH) NEB ×3 (07:46→15:12)
[2017-07-20 08:05] VITALS: BP 123/90; PULSE 91; RESP 20; TEMP 98.5; O2SAT 95
[2017-07-20] MEDS: REMOVE OLD PATCH T-DERMAL SCH (08:44)
[2017-07-20] MEDS: NICOTINE 21 MG/24 HR PATCH T-DERMAL SCH (08:44)
[2017-07-20] MEDS: FOLIC ACID 1 MG TAB PO SCH (08:44)
[2017-07-20] MEDS: MULTIVITAMINS/MINERALS THERAPEUTIC TAB PO SCH (08:44)
[2017-07-20] MEDS: THIAMINE HCL 100 MG TAB PO SCH (08:44)
[2017-07-20 12:00] VITALS: BP 130/99; PULSE 80; RESP 20; TEMP 99; O2SAT 96
--- NOTE | 2017-07-20 15:20 | HHI.PR ---
Subjective Remarks The patient was anxious to go home later on today. He says his pain is controlled. He said that his hand is healing. He had questions pertaining to his rabies vaccinations. Discussed with nursing. Objective Vitals Vital Signs Date Time Temp Pulse Resp B/P (MAP) Pulse Ox O2 Delivery O2 Flow Rate FiO2 07/20/17 12:00 99.0 80 20 130/99 (109) 96 07/20/17 08:05 98.5 91 20 123/90 (101) 95 07/20/17 04:00 98.2 70 20 117/73 (88) 95 07/20/17 00:00 98.3 73 18 109/76 (87) 95 07/19/17 20:00 98.9 77 18 128/95 (106) 96 07/19/17 16:00 98.6 99 18 136/98 (111) 96 I/O 07/19/17 07/19/17 07/19/17 07/20/17 07/20/17 07/20/17 06:59 14:59 22:59 06:59 14:59 22:59 Intake Total 480 ml Balance 480 ml Intake Oral 480 ml # Voids 3 6 # Bowel Movements 2 Result Diagram: 07/16/17 0658 07/17/17 1020 Imaging Last Impressions Chest X-Ray 07/17/17 0000 Signed Impressions: Service Date/Time: Monday, July 17, 2017 14:33 - CONCLUSION: Normal examination for a patient of this age. Alexx Deluna MD Hand X-Ray 07/15/17 1759 Signed Impressions: Service Date/Time: June 18:09 - CONCLUSION: 1. Soft tissue swelling overlying the dorsum of the distal right hand and middle digit. 2. No radiopaque foreign bodies or fracture. Jak Valentin MD Objective Remarks GENERAL: Resting comfortably. SKIN: Dry dressing right hand. CARDIOVASCULAR: Regular rate and rhythm without murmurs RESPIRATORY: Breath sounds equal bilaterally. clear on auscultation GASTROINTESTINAL: Abdomen soft, non-tender, nondistended. No guarding. MUSCULOSKELETAL: Increasing range of motion right fingers NEUROLOGICAL: Awake and alert. Normal speech. Procedures incision and drainage abscess right middle finger dorsum incision and drainage flexor tendon sheath right middle finger Medications and IVs Current Medications Medications (Trade) Dose Ordered Sig/Karol Route Start Time Stop Time Status Last Admin (NS Flush) 2 ml UNSCH PRN IV FLUSH 07/15/17 18:45 07/19/17 02:09 (NS Flush) 2 ml BID IV FLUSH 07/15/17 21:00 07/20/17 08:45 (Narcan Inj) 0.4 mg UNSCH PRN IV PUSH 07/15/17 18:45 Ampicillin Sodium/ Sulbactam Sodium 3 gm/Sodium Chloride 100 ml @ 200 mls/hr Q6H IV 07/16/17 00:00 07/20/17 11:31 (Morphine Inj) 2 mg Q3H PRN IV PUSH 07/15/17 19:15 07/16/17 08:17 (Folate) 1 mg DAILY PO 07/16/17 09:00 07/21/17 08:59 07/20/17 08:44 (Vitamin B1) 100 mg DAILY PO 07/16/17 09:00 07/20/17 08:44 (Theragran M Tab) 1 tab DAILY PO 07/16/17 09:00 07/21/17 08:59 07/20/17 08:44 (Romazicon Inj) 0.2 mg Q1M PRN IV PUSH 07/15/17 21:00 (Ativan) 1 mg Q4H PRN PO 07/15/17 21:00 (Ativan Inj) 1 mg Q4H PRN IV PUSH 07/15/17 21:00 (Ativan) 2 mg Q2H PRN PO 07/15/17 21:00 (Ativan Inj) 2 mg Q2H PRN IV PUSH 07/15/17 21:00 (Ativan Inj) 2 mg Q1H PRN IV PUSH 07/15/17 21:00 (Ativan Inj) 2 mg Q15M PRN IV PUSH 07/15/17 21:00 (Pettigrew 5-325 Mg) 1 tab Q4H PRN PO 07/16/17 14:00 07/20/17 05:47 (Duoneb Neb) 1 ampule QID NEB NEB 07/17/17 12:00 (Albuterol Neb) 2.5 mg Q2HR NEB PRN NEB 07/17/17 10:30 (Habitrol 21 Mg Patch.24 Hr) 1 patch DAILY T-DERMAL 07/18/17 09:00 07/20/17 08:44 Miscellaneous Information 1 DAILY T-DERMAL 07/19/17 09:00 07/20/17 08:44 A/P Problem List: (1) Abscess of right middle finger ICD Code: L02.511 - Cutaneous abscess of right hand Status: Acute (2) flexor tenosynovitis right middle finger Status: Acute Assessment and Plan 1. Cat bite/finger abscess status post surgery. Culture with Pasteurella multocida. Stable continue Unasyn. Continue pain management with Lortab and IV morphine and wound care by hand surgery. Patient bitten by a stray cat with unknown history and received rabies immunoglobulin 07/15 and vaccine 07/15. Per health department, patient will need vaccinations on day 3, day 7 and 14 he will be able to receive these vaccinations at the health department. D/c once cleared by hand surgery on PO antibiotics and with PO pain meds. 2. Possible COPD. Tobacco cessation. Albuterol as needed. Chest x-ray without acute cardiopulmonary disease. 3. Alcohol abuse. Counselled. [facility] protocol. 4. Noncompliance. Counselled. PPx: Ambulation Saravanan Truong DO Jul 20, 2017 15:20
[2017-07-20 15:57] VITALS: BP 117/82; PULSE 71; RESP 20; TEMP 98.6; O2SAT 95
--- NOTE | 2017-07-20 18:08 | HHI.PR ---
Subjective Remarks complains of mild pain denies any numbness no fever Objective Vital Signs Date Time Temp Pulse Resp B/P (MAP) Pulse Ox O2 Delivery O2 Flow Rate FiO2 07/20/17 15:57 98.6 71 20 117/82 (94) 95 07/20/17 12:00 99.0 80 20 130/99 (109) 96 07/20/17 08:05 98.5 91 20 123/90 (101) 95 07/20/17 04:00 98.2 70 20 117/73 (88) 95 07/20/17 00:00 98.3 73 18 109/76 (87) 95 07/19/17 20:00 98.9 77 18 128/95 (106) 96 I/O 07/19/17 07/19/17 07/19/17 07/20/17 07/20/17 07/20/17 07:00 15:00 23:00 07:00 15:00 23:00 Intake Total 480 ml Balance 480 ml Intake Oral 480 ml # Voids 3 6 # Bowel Movements 2 examination of right middle finger: necrotic skin over the dorsal aspect of the proximal phalanx region decreased swelling and redness able to make a better fist Result Diagram: 07/16/17 0658 07/17/17 1020 Assessment and Plan Assessment and Plan 52 year old male s/p incision and drainage abscess, drainage flexor tendon sheath right middle finger POD 4 Plan: necrotic skin was debrided, extensor tendon exposed, minimal purulence xerofoam and dry dressing applied will get wound care nurse for wound vac application tomorrow booked him tentatively for wound wash, debridement and vac application in OR tomorrow. npo after breakfast. Cade Craven MD Jul 20, 2017 18:08
[2017-07-20 20:00] VITALS: BP 125/79; PULSE 66; RESP 18; TEMP 99.2; O2SAT 95
[2017-07-21] VITALS: BP 118/74; PULSE 73; RESP 18; TEMP 98.5; O2SAT 97
[2017-07-21] MEDS: AMPICILLIN-SULBACTAM INJ 3 GM in SODIUM CHLORIDE 0.9% INJ 100 ML IV SCH ×5 (00:15→22:20)
[2017-07-21] MEDS: SODIUM CHLORIDE 0.9% FLUSH 10 ML FLUSH IV FLUSH SCH ×3 (00:15→22:26)
[2017-07-21 04:00] VITALS: BP 123/76; PULSE 64; RESP 18; TEMP 98.8; O2SAT 96
[2017-07-21] MEDS ORDERED: POVIDONE IODINE 5% (ANTISEPSIS KIT) 4 APPLICATIONS EACH NARE PRN (05:45)
[2017-07-21] MEDS ORDERED: CHLORHEXIDINE GLUCONATE 2 % 1 PACK (2 CLOTHS) TOPICAL PRN (05:45)
[2017-07-21] MEDS ORDERED: LACTATED RINGER'S 1000 ML IV PRN (05:45)
[2017-07-21] MEDS ORDERED: SODIUM CHLORID 0.9% 500 ML IV PRN (05:45)
[2017-07-21] MEDS: ACETAMINOPHEN/HYDROcodone 325 MG/5 MG TAB PO PRN (05:50)
[2017-07-21 07:31] VITALS: BP 134/79; PULSE 76; RESP 20; TEMP 97.7; O2SAT 97
[2017-07-21] MEDS: THIAMINE HCL 100 MG TAB PO SCH (08:35)
[2017-07-21] MEDS: NICOTINE 21 MG/24 HR PATCH T-DERMAL SCH (08:35)
[2017-07-21] MEDS: REMOVE OLD PATCH T-DERMAL SCH (08:36)
[2017-07-21] MEDS ORDERED: MORPHINE SULFATE 2 MG/ML INJ IV PUSH ONE (09:45)
[2017-07-21] MEDS ORDERED: ACETAMINOPHEN/HYDROcodone 325 MG/5 MG TAB PO PRN (10:00)
--- NOTE | 2017-07-21 11:18 | PD.WCN.NOT ---
Wound Consult Description: Consult ordered by for Wound VAC placement to right middle finger Neg Pressure Wound Therapy Wound Location Wound Location: Right middle finger Wound Description Length: 2.4cm Width: 4.1cm Depth: 0.5cm Wound bed appearance: Wound base is ~75% tendon ~20% red tissue ~5% pink tissue . Periwound appearance: Other (7 Sutures intact) Settings Suction: 125 mmHg, Continuous Intensity: Low Other Information: Bridged, Windowpaned, Mushroomed Foam type: Black Number of pieces: 2 Additonal Information Patient was seen today by ad writer for placement of Wound vac to right middle finger.Patient is alert and oriented x3.No current complaints at this time.Dressing removed from right hand to reveal full thickness wound with tendon present.Wound cleansed with normal saline pat dry skin prep applied to periwound,bridging area.Adaptic gauze applied to tendon and sutures for protection.Draping applied to periwound and bridging area (dorsal hand).Black sponge applied to wound base making contact with all areas then bridged to dorsal hand,covered with drape then trac pad applied @125mmHg low continuos suction with no leaks noted.Patient tolerated wound care well. Neha Urban [facility] Jul 21, 2017 11:18
[2017-07-21 11:36] VITALS: BP 119/81; PULSE 70; RESP 20; TEMP 98.4; O2SAT 95
--- NOTE | 2017-07-21 12:31 | EKG ---
Date Performed: 07/21/2017 Time Performed: 07:12:52 PTAGE: 52 years EKG: Sinus rhythm NORMAL ECG PREVIOUS TRACING : 10/29/2007 19.37 Since the prior tracing, there has been no significant chavez DOCTOR: Santiago Rosas Interpretating Date/Time 07/21/2017 12:29:43
[2017-07-21] MEDS: ACETAMINOPHEN/HYDROcodone 325 MG/10 MG TAB PO PRN ×3 (13:55→22:26)
--- NOTE | 2017-07-21 15:14 | HHI.PR ---
Subjective Remarks The patient was anxious to go home. He stated that he is on parole and requested that I call his media liaison officer to explain why he was still in the hospital. No other acute concerns. Discussed with nursing. Objective Vitals Vital Signs Date Time Temp Pulse Resp B/P (MAP) Pulse Ox O2 Delivery O2 Flow Rate FiO2 07/21/17 11:36 98.4 70 20 119/81 (94) 95 07/21/17 07:31 97.7 76 20 134/79 (97) 97 07/21/17 04:00 98.8 64 18 123/76 (92) 96 07/21/17 00:00 98.5 73 18 118/74 (89) 97 07/20/17 20:00 99.2 66 18 125/79 (94) 95 07/20/17 15:57 98.6 71 20 117/82 (94) 95 I/O 07/20/17 07/20/17 07/20/17 07/21/17 07/21/17 07/21/17 07:00 15:00 23:00 07:00 15:00 23:00 Intake Total 800 ml Balance 800 ml Intake Oral 800 ml # Voids 6 3 # Bowel Movements 2 Result Diagram: 07/17/17 1020 Imaging Last Impressions Chest X-Ray 07/17/17 0000 Signed Impressions: Service Date/Time: Monday, July 17, 2017 14:33 - CONCLUSION: Normal examination for a patient of this age. Alexx Deluna MD Hand X-Ray 07/15/17 1759 Signed Impressions: Service Date/Time: June 18:09 - CONCLUSION: 1. Soft tissue swelling overlying the dorsum of the distal right hand and middle digit. 2. No radiopaque foreign bodies or fracture. Jak Valentin MD Objective Remarks GENERAL: Resting comfortably. SKIN: Dry dressing right hand. CARDIOVASCULAR: Regular rate and rhythm without murmurs RESPIRATORY: Breath sounds equal bilaterally. clear on auscultation GASTROINTESTINAL: Abdomen soft, non-tender, nondistended. No guarding. MUSCULOSKELETAL: Increasing range of motion right fingers NEUROLOGICAL: Awake and alert. Normal speech. PSYCH: Mood and affect appropriate. Procedures incision and drainage abscess right middle finger dorsum incision and drainage flexor tendon sheath right middle finger Medications and IVs Current Medications Medications (Trade) Dose Ordered Sig/Karol Route Start Time Stop Time Status Last Admin (NS Flush) 2 ml UNSCH PRN IV FLUSH 07/15/17 18:45 07/19/17 02:09 (NS Flush) 2 ml BID IV FLUSH 07/15/17 21:00 07/21/17 08:36 (Narcan Inj) 0.4 mg UNSCH PRN IV PUSH 07/15/17 18:45 Ampicillin Sodium/ Sulbactam Sodium 3 gm/Sodium Chloride 100 ml @ 200 mls/hr Q6H IV 07/16/17 00:00 07/21/17 12:04 (Vitamin B1) 100 mg DAILY PO 07/16/17 09:00 07/21/17 08:35 (Romazicon Inj) 0.2 mg Q1M PRN IV PUSH 07/15/17 21:00 (Ativan) 1 mg Q4H PRN PO 07/15/17 21:00 (Ativan Inj) 1 mg Q4H PRN IV PUSH 07/15/17 21:00 (Ativan) 2 mg Q2H PRN PO 07/15/17 21:00 (Ativan Inj) 2 mg Q2H PRN IV PUSH 07/15/17 21:00 (Ativan Inj) 2 mg Q1H PRN IV PUSH 07/15/17 21:00 (Ativan Inj) 2 mg Q15M PRN IV PUSH 07/15/17 21:00 (Albuterol Neb) 2.5 mg Q2HR NEB PRN NEB 07/17/17 10:30 (Habitrol 21 Mg Patch.24 Hr) 1 patch DAILY T-DERMAL 07/18/17 09:00 07/21/17 08:35 Miscellaneous Information 1 DAILY T-DERMAL 07/19/17 09:00 07/21/17 08:36 Lactated Ringer's 1,000 ml @ 30 mls/hr Q24H PRN IV 07/21/17 05:45 07/24/17 05:44 Sodium Chloride 500 ml @ 30 mls/hr [id number] PRN IV 07/21/17 05:45 07/24/17 05:44 (Betadine 5% Antisepsis Kit) 1 applic QUARANTINE INSPECTOR PRN EACH NARE 07/21/17 05:45 07/24/17 05:44 (Chlorhexidine 2% Cloth) 3 pack QUARANTINE INSPECTOR PRN TOPICAL 07/21/17 05:45 07/24/17 05:44 ([place] 5-325 Mg) 1 tab Q4H PRN PO 07/21/17 10:00 ([place] 10-325 Mg) 1 tab Q4H PRN PO 07/21/17 09:15 07/21/17 13:55 A/P Problem List: (1) Abscess of right middle finger ICD Code: L02.511 - Cutaneous abscess of right hand Status: Acute (2) flexor tenosynovitis right middle finger Status: Acute Assessment and Plan 1. Cat bite/finger abscess status post surgery. Culture with Pasteurella multocida. Stable continue Unasyn. Continue pain management with Lortab and IV morphine and wound care by hand surgery. Patient bitten by a stray cat with unknown history and received rabies immunoglobulin 07/15 and vaccine 07/15. Per health department, patient will need vaccinations on day 3, day 7 and 14 he will be able to receive these vaccinations at the health department. D/c once cleared by hand surgery on PO antibiotics and with PO pain meds. Has a wound vac. Arrangements for outpt wound care are being arranged. 2. Possible COPD. Tobacco cessation. Albuterol as needed. Chest x-ray without acute cardiopulmonary disease. 3. Alcohol abuse. Counselled. CIWA protocol. 4. Noncompliance. Counselled. PPx: Ambulation Discharge Planning Discharge once wound VAC arranged and cleared by hand surgery Saravanan Truong DO Jul 21, 2017 15:14
[2017-07-21 16:26] VITALS: BP 144/89; PULSE 78; RESP 20; TEMP 98.3; O2SAT 95
[2017-07-21 20:00] VITALS: BP 129/65; PULSE 76; RESP 18; TEMP 97.9; O2SAT 95
[2017-07-22] VITALS: BP 182/104; PULSE 63; RESP 18; TEMP 98; O2SAT 96
[2017-07-22 04:00] VITALS: BP 109/61; PULSE 57; RESP 18; TEMP 97.7; O2SAT 95
[2017-07-22] MEDS: AMPICILLIN-SULBACTAM INJ 3 GM in SODIUM CHLORIDE 0.9% INJ 100 ML IV SCH ×4 (05:24→23:27)
[2017-07-22] MEDS: ACETAMINOPHEN/HYDROcodone 325 MG/10 MG TAB PO PRN ×5 (05:33→23:26)
[2017-07-22 08:00] VITALS: BP 117/68; PULSE 67; RESP 17; TEMP 97.6; O2SAT 96
[2017-07-22] MEDS: REMOVE OLD PATCH T-DERMAL SCH (08:31)
[2017-07-22] MEDS: NICOTINE 21 MG/24 HR PATCH T-DERMAL SCH (08:31)
[2017-07-22] MEDS: SODIUM CHLORIDE 0.9% FLUSH 10 ML FLUSH IV FLUSH SCH ×2 (08:32→23:27)
[2017-07-22] MEDS: THIAMINE HCL 100 MG TAB PO SCH ×2 (08:32→08:34)
[2017-07-22 12:00] VITALS: BP 114/73; PULSE 70; RESP 18; TEMP 98.4; O2SAT 96
--- NOTE | 2017-07-22 14:11 | HHI.PR ---
Subjective Remarks The patient was anxious to know what he was going to do about his hand. He also requested again that I update his aoc operations intelligence officer. No other acute concerns. Nursing reports that he may be due for another rabies vaccine injection. Objective Vitals Vital Signs Date Time Temp Pulse Resp B/P (MAP) Pulse Ox O2 Delivery O2 Flow Rate FiO2 07/22/17 08:00 97.6 67 17 117/68 (84) 96 07/22/17 04:00 97.7 57 18 109/61 (77) 95 07/22/17 00:00 98.0 63 18 182/104 (130) 96 07/21/17 20:00 97.9 76 18 129/65 (86) 95 07/21/17 16:26 98.3 78 20 144/89 (107) 95 07/21/17 15:13 18 I/O 07/21/17 07/21/17 07/21/17 07/22/17 07/22/17 07/22/17 07:00 15:00 23:00 07:00 15:00 23:00 Intake Total 100 ml 100 ml Balance 100 ml 100 ml IV Total 100 ml 100 ml # Voids 3 3 Imaging Last Impressions Chest X-Ray 07/17/17 0000 Signed Impressions: Service Date/Time: Monday, July 17, 2017 14:33 - CONCLUSION: Normal examination for a patient of this age. Alexx Deluna MD Hand X-Ray 07/15/17 1759 Signed Impressions: Service Date/Time: June 18:09 - CONCLUSION: 1. Soft tissue swelling overlying the dorsum of the distal right hand and middle digit. 2. No radiopaque foreign bodies or fracture. Jak Valentin MD Objective Remarks GENERAL: Resting comfortably. SKIN: Dry dressing right hand. CARDIOVASCULAR: Regular rate and rhythm without murmurs. RESPIRATORY: Breath sounds equal bilaterally. clear to auscultation. GASTROINTESTINAL: Abdomen soft, non-tender, nondistended. No guarding. MUSCULOSKELETAL: Increasing range of motion right fingers, bandage in place. NEUROLOGICAL: Awake and alert. Normal speech. PSYCH: Mood and affect appropriate. Procedures incision and drainage abscess right middle finger dorsum incision and drainage flexor tendon sheath right middle finger Medications and IVs Current Medications Medications (Trade) Dose Ordered Sig/Karol Route Start Time Stop Time Status Last Admin (NS Flush) 2 ml UNSCH PRN IV FLUSH 07/15/17 18:45 07/19/17 02:09 (NS Flush) 2 ml BID IV FLUSH 07/15/17 21:00 07/22/17 08:32 (Narcan Inj) 0.4 mg UNSCH PRN IV PUSH 07/15/17 18:45 Ampicillin Sodium/ Sulbactam Sodium 3 gm/Sodium Chloride 100 ml @ 200 mls/hr Q6H IV 07/16/17 00:00 07/22/17 13:43 (Vitamin B1) 100 mg DAILY PO 07/16/17 09:00 07/21/17 08:35 (Romazicon Inj) 0.2 mg Q1M PRN IV PUSH 07/15/17 21:00 (Ativan) 1 mg Q4H PRN PO 07/15/17 21:00 (Ativan Inj) 1 mg Q4H PRN IV PUSH 07/15/17 21:00 (Ativan) 2 mg Q2H PRN PO 07/15/17 21:00 (Ativan Inj) 2 mg Q2H PRN IV PUSH 07/15/17 21:00 (Ativan Inj) 2 mg Q1H PRN IV PUSH 07/15/17 21:00 (Ativan Inj) 2 mg Q15M PRN IV PUSH 07/15/17 21:00 (Albuterol Neb) 2.5 mg Q2HR NEB PRN NEB 07/17/17 10:30 (Habitrol 21 Mg Patch.24 Hr) 1 patch DAILY T-DERMAL 07/18/17 09:00 07/22/17 08:31 Miscellaneous Information 1 DAILY T-DERMAL 07/19/17 09:00 07/22/17 08:31 Lactated Ringer's 1,000 ml @ 30 mls/hr Q24H PRN IV 07/21/17 05:45 07/24/17 05:44 Sodium Chloride 500 ml @ 30 mls/hr [id number] PRN IV 07/21/17 05:45 07/24/17 05:44 (Betadine 5% Antisepsis Kit) 1 applic SENIOR REPORT DEVELOPER PRN EACH NARE 07/21/17 05:45 07/24/17 05:44 (Chlorhexidine 2% Cloth) 3 pack SENIOR REPORT DEVELOPER PRN TOPICAL 07/21/17 05:45 07/24/17 05:44 ([place] 5-325 Mg) 1 tab Q4H PRN PO 07/21/17 10:00 ([place] 10-325 Mg) 1 tab Q4H PRN PO 07/21/17 09:15 07/22/17 13:42 (Imovax Inj) 2.5 units ONCE ONCE IM 07/22/17 14:15 07/22/17 14:16 UNV A/P Problem List: (1) Abscess of right middle finger ICD Code: L02.511 - Cutaneous abscess of right hand Status: Acute (2) flexor tenosynovitis right middle finger Status: Acute Assessment and Plan Cat bite/finger abscess Status post surgery. Culture with Pasteurella multocida. Stable. - continue Unasyn. - Continue pain management with Lortab and IV morphine and wound care by hand surgery. - Patient bitten by a stray cat with unknown history and received rabies immunoglobulin. He received rabies vaccine 07/15, 07/18 and 07/22. Per health department, patient will need vaccinations on day 3, day 7 and 14. He will be able to receive these vaccinations at the health department. His next and final dose is due on 07/29. - D/c once cleared by hand surgery on PO antibiotics and with PO pain meds. - Has a wound vac. May require further debriding in house prior to discharge. Possible COPD Mild wheezing on exam. CXR unremarkable. - Tobacco cessation. - Albuterol as needed. Alcohol abuse Counselled. - [facility] protocol. On parole crime prevention police officer has been contacted. - outpt follow-up. PPx: Ambulation Discharge Planning D/c once cleared by hand surgery Saravanan Truong DO Jul 22, 2017 14:11
[2017-07-22] MEDS ORDERED: RABIES VACCINE HUMAN DIPL CELL 2.5 UNITS/ML SYRINGE IM ONE (15:00)
[2017-07-22 16:44] VITALS: BP 109/64; PULSE 57; RESP 17; TEMP 98.2; O2SAT 96
--- NOTE | 2017-07-22 16:58 | HHI.PR ---
Subjective Remarks complains of mild pain and stiffness denies any numbness no fever had wound vac placed yesterday Objective Vital Signs Date Time Temp Pulse Resp B/P (MAP) Pulse Ox O2 Delivery O2 Flow Rate FiO2 07/22/17 16:44 98.2 57 17 109/64 (79) 96 07/22/17 12:00 98.4 70 18 114/73 (87) 96 07/22/17 08:00 97.6 67 17 117/68 (84) 96 07/22/17 04:00 97.7 57 18 109/61 (77) 95 07/22/17 00:00 98.0 63 18 182/104 (130) 96 07/21/17 20:00 97.9 76 18 129/65 (86) 95 I/O 07/21/17 07/21/17 07/21/17 07/22/17 07/22/17 07/22/17 07:00 15:00 23:00 07:00 15:00 23:00 Intake Total 100 ml 100 ml Balance 100 ml 100 ml IV Total 100 ml 100 ml # Voids 3 3 right middle finger: wound vac in place flexion of the middle finger MP joint is limited intact distal sensation and circulation cultures; Pasteurella Assessment and Plan Assessment and Plan 52 year old male s/p incision and drainage abscess, drainage flexor tendon sheath right middle finger POD 6, s/p wound vac placement yesterday Plan: patient can discharged home after home wound vac is arranged for on po augmentin follow up in office next week patient has been advised regarding range of motion exercises. Cade Craven MD Jul 22, 2017 16:58
[2017-07-22 20:16] VITALS: BP 124/79; PULSE 65; RESP 18; TEMP 98.5; O2SAT 97
[2017-07-23] VITALS: BP 139/85; PULSE 67; RESP 18; TEMP 97.8; O2SAT 97
[2017-07-23 04:00] VITALS: BP 106/54; PULSE 73; RESP 18; TEMP 98.3; O2SAT 96
[2017-07-23] MEDS: ACETAMINOPHEN/HYDROcodone 325 MG/10 MG TAB PO PRN ×3 (05:53→14:36)
[2017-07-23] MEDS: AMPICILLIN-SULBACTAM INJ 3 GM in SODIUM CHLORIDE 0.9% INJ 100 ML IV SCH ×2 (05:54→10:37)
[2017-07-23] MEDS: SODIUM CHLORIDE 0.9% FLUSH 10 ML FLUSH IV FLUSH SCH (07:42)
[2017-07-23] MEDS: THIAMINE HCL 100 MG TAB PO SCH (07:43)
[2017-07-23] MEDS: REMOVE OLD PATCH T-DERMAL SCH (07:44)
[2017-07-23] MEDS: NICOTINE 21 MG/24 HR PATCH T-DERMAL SCH (07:44)
[2017-07-23 08:00] VITALS: BP 106/73; PULSE 68; RESP 17; TEMP 98.1; O2SAT 95
[2017-07-23 08:30] LABS: HEMATOCRIT 40.3 % (39.0-51.0); HEMOGLOBIN 14.1 GM/DL (13.0-17.0); MEAN CELL VOLUME 94.9 FL (80.0-100.0); MEAN CORPUSCULAR HEMOGLOBIN 33.3 PG (27.0-34.0); MEAN CORPUSCULAR HGB CONC 35.1 % (32.0-36.0); MEAN PLATELET VOLUME 7.8 FL (7.0-11.0); PLATELET COUNT 217 TH/MM3 (150-450); RED BLOOD COUNT 4.25 MIL/MM3 (4.50-5.90); RED CELL DISTRIBUTION WIDTH 13.7 % (11.6-17.2); WHITE BLOOD COUNT 5.9 TH/MM3 (4.0-11.0)
[2017-07-23 09:01] LABS: BICARBONATE 26.1 MEQ/L (21.0-32.0); CALCIUM 9.4 MG/DL (8.5-10.1); CREATININE 0.59 MG/DL (0.60-1.30); MAGNESIUM 1.8 MG/DL (1.5-2.5)
--- NOTE | 2017-07-23 10:47 | HHI.FF ---
Face to Face Verification Diagnosis: (1) Cat bite of finger (2) Cellulitis (3) flexor tenosynovitis right middle finger (4) Abscess of right middle finger Home Health Nursing Order: Medical education Signs/symptoms of disease process Medication education-adverse effect Wound care and dressing changes Nursing assessment with vital signs Instructions: Wound Vac dressing changes Guido I have seen patient Francisco Banks on 07/23/17. My clinical findings support the need for the requested home health care services because: Ltd mobility - disease progression Deconditioned w/ increased weakness Limited ability to care for self Infection w/ risk of complications I certify that my clinical findings support that this patient is homebound because: Post-op weakness Saravanan Truong DO Jul 23, 2017 10:47
--- NOTE | 2017-07-23 10:57 | HHI.DS ---
Discharge Summary Admission Date Jul 15, 2017 at 18:37 Discharge Date: Jul 23, 2017 Admitting Diagnosis right middle finger infected cat bite, tendosynovitis? (1) Abscess of right middle finger ICD Code: L02.511 - Cutaneous abscess of right hand Diagnosis: Principal Status: Acute (2) flexor tenosynovitis right middle finger Diagnosis: Principal Status: Acute (3) Cat bite of finger ICD Code: S61.259A - Open bite of unspecified finger without damage to nail, initial encounter; W55.01XA - Bitten by cat, initial encounter Diagnosis: Principal Status: Acute (4) Cellulitis ICD Code: L03.90 - Cellulitis, unspecified Diagnosis: Principal Status: Acute Procedures incision and drainage abscess right middle finger dorsum incision and drainage flexor tendon sheath right middle finger Brief History - From Admission 52-year-old male with past medical history of alcohol and tobacco abuse (has not seen a PCP in 40 years) presents to the emergency department for evaluation of a cat bite. The patient reports that 4 days ago he was petting a stray cat that he had recently adopted when the cat bit the third digit of his right hand and scratched his face. The cat has never been to a wheel and pinion inspector. The patient' s finger began to swell and ulcerate and he is now having difficulty with range of motion. He reports significant pain to the finger. The scratches on his face are healing without signs of erythema or induration. The patient denies any fever/chills. No chest pain or shortness of breath. No nausea/vomiting/ diarrhea. CBC/BMP: 07/23/17 0710 07/23/17 0710 Significant Findings Laboratory Tests Test 07/23/17 07:10 Red Blood Count 4.25 MIL/MM3 (4.50-5.90) Creatinine 0.59 MG/DL (0.60-1.30) Imaging Last Impressions Chest X-Ray 07/17/17 0000 Signed Impressions: Service Date/Time: Monday, July 17, 2017 14:33 - CONCLUSION: Normal examination for a patient of this age. Alexx Deluna MD Hand X-Ray 07/15/17 3510 Signed Impressions: Service Date/Time: June 18:09 - CONCLUSION: 1. Soft tissue swelling overlying the dorsum of the distal right hand and middle digit. 2. No radiopaque foreign bodies or fracture. Jak Valentin MD PE at Discharge GENERAL: Resting comfortably. SKIN: Dry dressing right hand. CARDIOVASCULAR: Regular rate and rhythm without murmurs. RESPIRATORY: Breath sounds equal bilaterally. clear to auscultation. GASTROINTESTINAL: Abdomen soft, non-tender, nondistended. No guarding. MUSCULOSKELETAL: Increasing range of motion right fingers, bandage in place. NEUROLOGICAL: Awake and alert. Normal speech. PSYCH: Mood and affect appropriate. Pt update on day of discharge The patient was looking forward to being discharged. He said that he will need to go to work soon in order to make money. He said he will not be able to afford the pain medications and will take ibuprofen [id number]. Discussed with nursing at the bedside. Hospital Course Cat bite/finger abscess Culture grew Pasteurella multocida. He was started on IV Unasyn. Hand surgery was consulted. The pt is s/p incision and drainage of the abscess, drainage of the flexor tendon sheath of the right middle finger and s/p wound vac placement. He received pain control with a bowel regimen. Patient bitten by a stray cat with unknown history and received rabies immunoglobulin. He received rabies vaccine 07/15, 07/18 and 07/22. His next and final dose of the vaccine is due on 07/29 and he can obtain it at the health department. He was set up with a [facility] wound vac. He will continue PO Augmentin upon discharge. He will follow up with hand surgery as an outpt. Possible COPD Mild wheezing noted on exam. CXR unremarkable. He received tobacco cessation instruction as well as a nicotine patch. He received albuterol as needed. Alcohol abuse The pt was counseled. He was placed on CIWA protocol. On parole electronic intelligence officer has been contacted and updated about the pt's hospital stay. He will follow up as an outpt. Pt Condition on Discharge: Stable Discharge Disposition: Disch w/ Home Health Serv Discharge Time: > 30 minutes Discharge Instructions DIET: Follow Instructions for: As Tolerated, No Restrictions Activities you can perform: See Additionl Instruction Follow up Referrals: Appointment for Follow Up with [facility] Dept: 07/29/17 Hand Surgery - 1 Week PCP Follow-up - 1 Week PCP Follow-up Surgical New Medications: Amoxicillin-Clavulanate (Augmentin) 875-125 Mg Tab 1 TAB PO BID for Infection, #20 TAB 0 Refills Hydrocodone/Acetaminophen (Hydrocodone-Acetamin 5-325 mg) 5 Mg-325 Mg Tablet 1 TAB PO Q6H PRN for pain 1-10, #28 TAB Thiamine HCl (Gnp Vitamin B-1) 100 Mg Tab 100 MG PO DAILY for Alcohol Detox, #30 TAB Continued Medications: Ibuprofen (Ibuprofen) 800 Mg Tab 800 MG PO Q6HR PRN for PAIN, #40 TAB 0 Refills Saravanan Truong DO Jul 23, 2017 10:57
[2017-07-23 12:00] VITALS: BP 98/57; PULSE 72; RESP 17; TEMP 97.9; O2SAT 95
--- NOTE | 2017-07-28 17:14 | PQ ---
Physician Query Response Document PATIENT: AUSTIN WHATLEY : 1965 ADMIT DATE: 07/15/2017 6:37 PM DISCH DATE: 07/23/2017 4:45 PM RESPONDING PROVIDER #: suha QUERY TEXT: Debridement Type Based on your medical judgment, can you further clarify the precise nature, depth, extent, and/or met hods of wound debridement utilized in this case (bedside procedure on 07/20/17) such as: --EXCISIONAL debridement --NON-EXCISIONAL debridement --Other debridement --Other Specify Based on your medical judgment, can you further clarify the specific structures debrided such as: --Skin --Subcutaneous tissue --Fascia --Muscle --Other Specify If you have any additional questions/comments and/or concerns, please do not hesitate to reach out to the CDI/Coding Hotline, Ext. [phone]. The patient's Clinical Indicators include: Progress Note by Dr. Craven on 07/19/17- under Plan: option for necrotic skin with daily dressing changes vs surgical excision. hand surgery will follow tomorrow and decide about the excision of nec rotic skin which will be done bedside Progress Note of 07/20/17: Plan: necrotic skin was debrided, extensor tendon exposed, minimal purulence xerofoam and dry dressing applied will get wound care nurse for wound vac application tomorrow booked him tentatively for wound wash, debridement and vac application in OR tomorrow. No additional surgical procedures documented. Query created by: Rebecca Cabello on 07/28/2017 11:19 AM RESPONSE TEXT: Necrotic skin was debrided Electronically signed by: Cade Craven MD 07/28/2017 5:10 PM
== END 2017-07-23 16:45 | disposition home health service (06) | DRG 580 ==
LOC: NEPE 16:13 → NEDA 18:37 → N05B 20:21
PROVIDERS: ADMIT Hospitalist; ATTEND Hospitalist
PROC: 0L970ZX Drainage of Right Hand Tendon, Open Approach, Diagnostic (ICD-10-PCS; principal; 2017-07-16)
PROC: 0PBT0ZZ Excision of Right Finger Phalanx, Open Approach (ICD-10-PCS; 2017-07-16)
PROC: 0HBFXZZ Excision of Right Hand Skin, External Approach (ICD-10-PCS; 2017-07-20)
DX: S61.252A Open bite of right middle finger without damage to nail, initial encounter (principal); L02.511 Cutaneous abscess of right hand; A28.0 Pasteurellosis; M65.141 Other infective (teno)synovitis, right hand; L03.011 Cellulitis of right finger; W55.01XA Bitten by cat, initial encounter; F10.10 Alcohol abuse, uncomplicated; F17.210 Nicotine dependence, cigarettes, uncomplicated; Z91.19 Patient's noncompliance with other medical treatment and regimen
CPT/HCPCS: 71045; 73130; 80048; 83735; 85025; 85027; 87015; 87040; 87070; 87102; 87116; 87205; 87206; 90375; 90675; 93005; 96374; 96375; J0295; J0690; J2250; J2270; J2370; J2405; J3010; J3480

== ENCOUNTER 2017-08-03 09:16 | Emergency (ER) | payer SELFPAY ==
[~2017-08-03] VITALS: Ht 177.8 cm; Wt 70.0 kg
[~2017-08-03 09:16] MED LIST: AUGM875T3 PO; HYDR-3516 PO; IBUP1TAB7 PO; THIA100 PO
[2017-08-03 09:21] VITALS: BP 129/81; PULSE 84; RESP 16; TEMP 98.1; O2SAT 99
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
[2017-08-03] MEDS ORDERED: RABIES VACCINE CHICK EMB INJ 2.5 UNITS/ML SYR IM ONE (10:15)
== END 2017-08-03 11:13 | disposition home or self-care (01) ==
LOC: NEPK 09:16
DX: T14.8XXD Other injury of unspecified body region, subsequent encounter (principal); W55.01XD Bitten by cat, subsequent encounter; Z23 Encounter for immunization
CPT/HCPCS: 90471; 90675